=== PATIENT | male | born 1955 | race Caucasian/White ===

== ENCOUNTER 2020-08-06 06:41 | Day surgery (SDC) | payer MEDICAID ==
[2020-08-06] MEDS ORDERED: fentaNYL 100 MCG/2 ML SDV IV ONE (06:42)
[2020-08-06] MEDS ORDERED: Ondansetron 4 MG/2 ML SDV IVPUSH ONE (06:42)
[2020-08-06] MEDS ORDERED: Lidocaine 2% 5 ML SDV INJECT ONE (06:42)
[2020-08-06] MEDS ORDERED: Midazolam 1 MG/ML 2 ML SDV IV ONE (06:42)
[2020-08-06] MEDS ORDERED: Dexamethasone 4 MG/ML 5 ML MDV IVPUSH ONE (06:42)
[2020-08-06] MEDS ORDERED: Propofol 200 MG/20 ML SDV IV ONE (06:42)
[2020-08-06] MEDS ORDERED: Ketorolac 30 MG/ML SDV IVPUSH ONE (06:42)
[2020-08-06] MEDS ORDERED: Sodium Chloride 0.9% 10 ML Syringe FLUSH PRN (07:15)
[2020-08-06] MEDS ORDERED: Lactated Ringers 1,000 ML IV SCH (07:15)
[2020-08-06] MEDS: ceFAZolin 2 GM in Premix Bag 1 BAG IV ONE ×2 (07:38→09:06)
--- NOTE | 2020-08-06 07:59 | PCM.HP.2 ---
H&P History of Present Illness - General Date of Service: 08/06/20 Admit Problem/Dx: Admission Diagnosis/Problem Admission Diagnosis/Problem Umbilical hernia without obstruction and without gangrene Source of Information: Patient, Old Records - History of Present Illness Initial Comments - Free Text/Narative: 64 yo wm who was initially seen in Jun 2020 with an umbilical hernia. It is reducible and he notes no significant sx except with some heavy lifting. US confirmed this obvious reducible hernia. No obstructive sx. - Related Data Allergies/Adverse Reactions: Allergies Allergy/AdvReac Type Severity Reaction Status Date / Time No Known Allergies Allergy Verified 08/06/20 07:04 Home Medications: Home Meds Ascorbate Calcium [Vitamin C] 500 mg PO DAILY 08/02/20 [History] Chlorthalidone 25 mg PO DAILY 08/02/20 [History] Losartan [Cozaar] 50 mg PO BID 08/02/20 [History] Past Medical History HEENT History: Reports: Cataract, Impaired Vision Cardiovascular History: Reports: Hypertension Social & Family History - Tobacco Use Tobacco Use Status *Q: Current Every Day Tobacco User Years of Tobacco use: 50 Packs/Tins Daily: 0.5 - Caffeine Use Caffeine Use: Reports: Soda, Tea - Recreational Drug Use Recreational Drug Use: No H&P Review of Systems - Review of Systems: Review Of Systems: See Below General: Reports: No Symptoms HEENT: Reports: No Symptoms Pulmonary: Reports: No Symptoms Cardiovascular: Reports: No Symptoms Gastrointestinal: Reports: No Symptoms Neurological: Reports: No Symptoms Exam - Exam Exam: See Below - Vital Signs Vital Signs: Last Vital Signs Temp 98.8 F 08/06/20 06:50 Pulse 74 08/06/20 06:50 Resp 20 08/06/20 06:50 BP 173/61 H 08/06/20 06:50 Pulse Ox 99 08/06/20 06:50 Weight: 81.4 kg - Exam General: Alert, Oriented Lungs: Clear to Auscultation, Normal Respiratory Effort Cardiovascular: Regular Rate, Regular Rhythm GI/Abdominal Exam: Normal Bowel Sounds, Soft, Non-Tender, Other (reducible umbilical hernia noted. no change from 06/2020 ) Sepsis Event Note - Focused Exam Vital Signs: Vital Signs Temp Pulse Resp BP Pulse Ox 08/06/20 06:50 98.8 F 74 20 173/61 H 99 *Q Meaningful Use (ADM) - VTE *Q VTE Pharmacological Contraindications *Q: Patient Scheduled Surgery - Problem List (1) Umbilical hernia without mention of obstruction or gangrene SNOMED Code(s): 085604077 ICD Code: K42.9 - UMBILICAL HERNIA WITHOUT OBSTRUCTION OR GANGRENE Status: Acute Current Visit: Yes Qualifiers: Obstruction and gangrene presence: without obstruction or gangrene Qualified Code(s): K42.9 - Umbilical hernia without obstruction or gangrene (2) Tobacco use SNOMED Code(s): 276549780 ICD Code: Z72.0 - TOBACCO USE Status: Acute Current Visit: Yes (3) Hypertension SNOMED Code(s): 95500993 ICD Code: I10 - ESSENTIAL (PRIMARY) HYPERTENSION Status: Acute Current Visit: Yes Qualifiers: Hypertension type: essential hypertension Qualified Code(s): I10 - Ess ential (primary) hypertension Problem List Initiated/Reviewed/Updated: Yes Orders Last 24hrs: Active Orders 24 hr Category Date Time Status Patient Status [ADT] Routine ADT 08/06/20 07:15 Ordered Patient to Empty Bladder [RC] ASDIRECTED Care 08/06/20 07:15 Active RT Incentive Spirometry [RC] ASDIRECTED Care 08/06/20 07:15 Active Verify Patient Consent Obtain [RC] ASDIRECTED Care 08/06/20 07:15 Active Nothing Per Oral Diet [DIET] Diet 08/05/20 Dinner Ordered Lactated Ringers [Ringers, Lactated] 1,000 ml Med 08/06/20 07:15 Active IV ASDIRECTED Sodium Chloride 0.9% [Saline Flush] Med 08/06/20 07:15 Active 10 ml FLUSH ASDIRECTED PRN ceFAZolin [Ancef] 2 gm Med 08/06/20 08:45 Active Premix Bag 1 bag IV ONETIME Peripheral IV Insertion Adult [OM.PC] Routine Oth 08/06/20 07:15 Ordered Sequential Compression Device [OM.PC] Routine Oth 08/06/20 07:15 Ordered Medication Orders Lactated Ringer's (Ringers, Lactated) 1,000 mls @ 125 mls/hr IV ASDIRECTED DOLORES Last Admin: 08/06/20 07:25 Dose: 125 mls/hr Documented by: ASUFKAT Cefazolin Sodium/Dextrose 2 gm (/ Premix) 50 mls @ 100 mls/hr IV ONETIME ONE Stop: 08/06/20 09:14 Last Admin: 08/06/20 07:38 Dose: 100 mls/hr Documented by: MERLYN Sodium Chloride (Saline Flush) 10 ml FLUSH ASDIRECTED PRN PRN Reason: Keep Vein Open Assessment/Plan Comment:: umbilical hernia without obstruction or gangrene Plan: Umbilical hernia repair. Procedure and risks explained to the pt to include ble eding, infection, injury to the intestine, the use of mesh as well as recurrence. This was reviewed today as it was presented in Nov. He expressed understanding and asks us to proceed. - Mortality Measure Prognosis:: Good
[2020-08-06] MEDS ORDERED: Bupivacaine 0.5% 30 ML SDV INJECT ONE (08:19)
[2020-08-06] MEDS ORDERED: Lidocaine 1% with EPINEPHrine 1:100,000 20 ML MDV INJECT ONE (08:19)
--- NOTE | 2020-08-06 08:39 | PCM.OPNOTE ---
- General Post-Op/Procedure Note Date of Surgery/Procedure: 08/06/20 Operative Procedure(s): umbilical hernia repair with mesh Findings: 1 cm defect Pre Op Diagnosis: umbilical hernia without obstruction or gangrene Post-Op Diagnosis: Same Anesthesia Technique: General LMA, Local (5 ml 1 % lido with epi/0.5% buvipicaine) Primary Surgeon: Cristian Olivo Anesthesia Provider: Cedrick Lizama Pathology: none submitted Complications: None Condition: Good Free Text/Narrative:: see dictation #[id number]
--- NOTE | 2020-08-06 11:56 | OR ---
DATE OF OPERATION: 08/06/2020 SURGEON: Cristian Olivo MD PROCEDURE PERFORMED: Umbilical hernia repair with mesh. PREOPERATIVE DIAGNOSIS: Umbilical hernia without obstruction or gangrene. POSTOPERATIVE DIAGNOSIS: Umbilical hernia without obstruction or gangrene. INDICATIONS FOR PROCEDURE: This is a 64-year-old white male who was referred with a reducible umbilical hernia that was uncomfortable with lifting. He was offered and accepted repair. DESCRIPTION OF PROCEDURE: After an excellent general anesthetic was administered via LMA, the patient was prepped and draped in usual sterile manner. 5 mL of 1:1 mixture of 1% lidocaine with epinephrine and 0.5% bupivacaine was used to infiltrate the area around the umbilicus, essentially creating a field block. The incision was made with a #15 scalpel blade in a circumferential manner around the base of the umbilicus. Sharp dissection was carried out to dissect the hernia sac free from the surrounding tissue, and after completely mobilizing the hernia, it was then transected from the base of the umbilicus. The excess sac was excised using electrocautery and bleeding was controlled with electrocautery. There was no adherent fat underneath. A Ventralex ST hernia patch 4.3 cm in diameter, reference #[id number], lot number [id number] with an expiration date of 04/30/2021 was then placed. This was then sewn into position using 0-Prolene and then incorporating tails were then excised. After closing the defect, the umbilicus was tacked to the anterior abdominal wall using 0-Vicryl. The area was then irrigated, and the skin was then approximated with ramez. Needle, sponge, and instrument counts were reported as correct. The patient was taken to recovery room in good condition having tolerated the procedure well. /[id number] /MODL
== END 2020-08-06 09:55 | disposition home or self-care (01) ==
LOC: FB.SDS 06:41
PROVIDERS: ATTEND Surgery
DX: K42.9 Umbilical hernia without obstruction or gangrene (principal); F17.210 Nicotine dependence, cigarettes, uncomplicated; I10 Essential (primary) hypertension; Z79.899 Other long term (current) drug therapy
CPT/HCPCS: 00750-QZ; 94150; C1781; J0690; J1100; J1885; J2001; J2250; J2405; J2704; J3010; J3490; J7120

== ENCOUNTER 2022-08-23 14:30 | Emergency (ER) | payer MEDICARE ==
[2022-08-23] MEDS ORDERED: Acetaminophen/HYDROcodone 325-5 MG Tab PO ONE (14:31)
[2022-08-23] MEDS ORDERED: Ondansetron 4 MG/2 ML SDV IVPUSH ONE (15:07)
[2022-08-23] MEDS ORDERED: fentaNYL 100 MCG/2 ML SDV IVPUSH ONE (15:08)
[2022-08-23] MEDS ORDERED: Morphine 4 MG/ML VIAL IVPUSH ONE (15:16)
== END 2022-08-23 17:40 | disposition home or self-care (01) ==
LOC: FB.ED 14:30
DX: S42.294A Other nondisplaced fracture of upper end of right humerus, initial encounter for closed fracture (principal); I12.9 Hypertensive chronic kidney disease with stage 1 through stage 4 chronic kidney disease, or unspecified chronic kidney disease; N18.31 Chronic kidney disease, stage 3a; Z88.8 Allergy status to other drugs, medicaments and biological substances; Z79.899 Other long term (current) drug therapy; V86.92XA Unspecified occupant of snowmobile injured in nontraffic accident, initial encounter
CPT/HCPCS: 71101-RT; 73030-RT; 96374; 96375; 99282; 99283-25; A9270-GY; J2270; J2405